=== PATIENT | male | born 1980 | race Hispanic/Latino ===

== ENCOUNTER 2022-09-03 11:23 | Emergency (ER) | payer SELFPAY ==
[2022-09-03] MEDS ORDERED: TETANUS & DIPHTHERIA TOX,ADULT 0.5 ML VIAL ONE (11:55)
[2022-09-03] MEDS ORDERED: LIDOCAINE 1% MPF 30 ML VIAL ONE (11:56)
--- NOTE | 2022-09-03 13:19 | ER ---
Nurse's Notes [facility] Name: Singh Cristina Age: 41 yrs Sex: Male : 1980 Arrival Date: 09/03/2022 Time: 11:24 Bed 11 Private MD: Diagnosis: Facial Laceration/ Laceration without foreign body of cheek and temporomandibular area Presentation: 09/03 11:41 Chief complaint: Patient states: metal [place] bar hit his face, bleeding controlled. [facility] Coronavirus screen: Vaccine status: Patient reports being unvaccinated. Client denies travel out of the [place] in the last 14 days. Ebola Screen: Patient negative for fever greater than or equal to 101.5 degrees Fahrenheit, and additional compatible Ebola Virus Disease symptoms Patient denies exposure to infectious person. Patient denies travel to an Ebola-affected area in the 21 days before illness onset. Initial Sepsis Screen: Does the patient meet any 2 criteria? No. Patient's initial sepsis screen is negative. Does the patient have a suspected source of infection? No. Patient's initial sepsis screen is negative. Risk Assessment: Do you want to hurt yourself or someone else? Patient reports no desire to harm self or others. 11:41 Method Of Arrival: Ambulatory [facility] 11:41 Acuity: SUZY 3 jh5 Triage Assessment: 11:42 General: Appears in no apparent distress. uncomfortable, well groomed, well developed, jh5 well nourished, Behavior is calm, cooperative, appropriate for age. Historical: - Allergies: 11:42 No Known Allergies; [facility] - PMHx: 11:42 None; [facility] - Immunization history:: Adult Immunizations up to date. - Social history:: Smoking status: Patient denies any tobacco usage or history of. Screenin:38 Abuse screen: Denies threats or abuse. Denies injuries from another. Nutritional ld1 screening: No deficits noted. Tuberculosis screening: No symptoms or risk factors identified. Fall Risk None identified. Assessment: 12:38 General: Appears in no apparent distress. comfortable, Behavior is calm, cooperative, ld1 appropriate for age. Pain: Denies pain. Neuro: Level of Consciousness is awake, alert, obeys commands, Oriented to person, place, time, situation, Appropriate for age. Cardiovascular: Capillary refill < 3 seconds Patient's skin is warm and dry. Respiratory: Airway is patent Respiratory effort is even, unlabored. GI: Abdomen is flat, non-distended. : No signs and/or symptoms were reported regarding the genitourinary system. EENT: No signs and/or symptoms were reported regarding the EENT system. Derm: No signs and/or symptoms reported regarding the dermatologic system. Musculoskeletal: No signs and/or symptoms reported regarding the musculoskeletal system. Vital Signs: 11:41 BP 131 / 88; Pulse 75; Resp 16; Temp 98.8; Pulse Ox 97% ; Weight 77.11 kg; Height 5 ft. 5 10 in. (177.80 cm); 11:41 Body Mass Index 24.39 (77.11 kg, 177.80 cm) 5 ED Course: 11:24 Patient arrived in ED. rg4 11:38 Samina Fajardo PA is PHCP. en 11:38 Humphrey Smith MD is Attending Physician. en 11:42 Triage completed. 5 11:42 Arm band placed on right wrist. 5 12:38 Jayshree Page, DIEGO is Primary Nurse. ld1 12:38 Patient has correct armband on for positive identification. Placed in gown. Bed in low ld1 position. Call light in reach. Side rails up X2. Pulse ox on. NIBP on. Door closed. Noise minimized. Warm blanket given. 12:38 Patient did not have IV access during this emergency room visit. ld1 13:30 No provider procedures requiring assistance completed. 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 Exp: ld1 03/13/2023. Lot #: [id number]. } Route: IM; Site: right deltoid; 11:58 Follow up: Response: (VIS) Vaccine information sheet provided today. Questions and/or ld1 concerns addressed. VIS edition date: May 30, 2021.; No adverse reaction 13:18 Follow up: Response: (VIS) Vaccine information sheet provided today. Questions and/or ld1 concerns addressed. VIS edition date: May 30, 2021.; No adverse reaction 13:17 Drug: Lidocaine (1 %) 10 ml {Note: Administered by VIJAY Lu..} Volume: 5 ld1 ml; Route: Infiltration; 13:18 Follow up: Response: No adverse reaction ld1 Medication: 13:30 Vaccine Information Statement (VIS) provided today. Questions and/or concerns ld1 addressed. VIS edition date: September 03, 2022. Outcome: 13:19 Discharge ordered by . en 13:30 Discharged to home ambulatory. ld1 13:30 Condition: stable 13:30 Discharge instructions given to patient, Instructed on discharge instructions, follow up and referral plans. Demonstrated understanding of instructions, follow-up care. 13:31 Patient left the ED. ld1 Signatures: Ebony Rizzo rg4 Jayshree Page RN RN ld1 Alessandra Snider RN RN jh5 Samina Fajardo PA PA en
--- NOTE | 2022-09-03 13:19 | EDPHYS ---
Physician Documentation [facility] Name: Singh Cristina Age: 41 yrs Sex: Male : 1980 Arrival Date: 09/03/2022 Time: 11:24 Bed 11 Private MD: ED Physician Humphrey Smith HPI: 09/03 11:51 This 41 yrs old Male presents to ER via Ambulatory with complaints of en Laceration To Face. 11:51 41-year-old male presents to ED with laceration to the right side of his cheek abutting en the nose prior to arrival. Patient reports that the wood floor she was working on gave way and when he fell the crowbar popped him in the face. He has no epistaxis. No cheek pain. No dental trauma. No difficulty opening or closing mouth. He did not lose consciousness and is not acting normal per friend. Unknown last tetanus.. Historical: - Allergies: 11:42 No Known Allergies; [facility] - PMHx: 11:42 None; [facility] - Immunization history:: Adult Immunizations up to date. - Social history:: Smoking status: Patient denies any tobacco usage or history of. ROS: 11:51 Constitutional: Negative for fever, chills, and weight loss. en 11:51 ENT: Positive for Laceration to right side of the nose with right-sided epistaxis currently controlled., Negative for Dental or nasal pain. No trauma to the teeth.. 11:51 Neck: Negative for pain with movement. 11:51 Skin: Positive for laceration(s), Laceration to the right cheek adjacent to the nose.. 11:51 All other systems are negative. 13:13 Skin: Positive for laceration(s). en Exam: 11:51 Constitutional: This is a well developed, well nourished patient who is awake, alert, en and in no acute distress. 11:51 Constitutional: The patient appears in no acute distress, alert, awake. 11:51 Head/face: 3.5 cm laceration to the right cheek adjacent to the nose with no extension into nasolabial fold. 11:51 Eyes: Pupils: equal, round, and reactive to light and accomodation, Extraocular movements: intact throughout, Conjunctiva: normal, no exudate, no injection. 11:51 ENT: TM's: are normal, no hemotympanum, No trismus or dental trauma. Right nostril with dried epistaxis no active bleeding. No tenderness to palpation swelling or deformity of the nose. No tenderness to the maxilla.. 11:51 Neck: External neck: is normal, no tenderness, ROM/movement: is normal, no range of motions limitations. 11:51 Cardiovascular: Rate: normal, Rhythm: regular, Heart sounds: normal, no murmur, no rub, no gallop. 11:51 Respiratory: the patient does not display signs of respiratory distress, Respirations: normal, Breath sounds: are clear throughout, no rales, rhonchi, no wheezing. 11:51 Skin: Facial laceration as described above. Vital Signs: 11:41 BP 131 / 88; Pulse 75; Resp 16; Temp 98.8; Pulse Ox 97% ; Weight 77.11 kg; Height 5 ft. jh5 10 in. (177.80 cm); 11:41 Body Mass Index 24.39 (77.11 kg, 177.80 cm) jh5 Laceration: 11:51 Wound Repair of 3.5cm ( 1.4in ) subcutaneous laceration to 3.5 cm lac to right cheek en adjacent to nose with with no extension into nasolabial fold. Distal neuro/vascular/tendon intact. Anesthesia: Wound infiltrated with 10 mls of 1% lidocaine. Wound prep: Simple cleansing with betadine, Wound explored, Copious irrigation. Subcutaneous tissue closed with 3 5-0 Vicryl using skin closed with 10 5-0 fast absorbing gut. Patient tolerated well. MDM: 11:49 Patient medically screened. en 11:51 Differential diagnosis: Right-sided facial laceration without concern for facial en fracture. No extension into the cartilage of the nasolabial fold. We will close primarily. Data reviewed: vital signs, nurses notes. ED course: . ED course: Plan to close laceration primarily with wound care and return precautions. 11:51 ED course: Pt tolerated procedure well. Discussed scar management. No extension to the en nasolabial fold. Discussed wound care and return precautions.. 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 Exp: ld1 03/13/2023. Lot #: [id number]. } Route: IM; Site: right deltoid; 11:58 Follow up: Response: (VIS) Vaccine information sheet provided today. Questions and/or ld1 concerns addressed. VIS edition date: May 30, 2021.; No adverse reaction 13:18 Follow up: Response: (VIS) Vaccine information sheet provided today. Questions and/or ld1 concerns addressed. VIS edition date: May 30, 2021.; No adverse reaction 13:17 Drug: Lidocaine (1 %) 10 ml {Note: Administered by PA. Tabitha.} Volume: 5 ld1 ml; Route: Infiltration; 13:18 Follow up: Response: No adverse reaction ld1 Disposition: 15:47 Co-signature as Attending Physician, Humphrey Smith MD. rn Disposition Summary: 09/03/22 13:19 Discharge Ordered Location: Home en Problem: new en Symptoms: have improved en Condition: Stable en Diagnosis - Facial Laceration/ Laceration without foreign body of cheek and temporomandibular en area Followup: en - With: Private Physician - When: As needed - Reason: Discharge Instructions: - Discharge Summary Sheet en - Facial Laceration, [id number] en Forms: - Medication Reconciliation Form en - Thank You Letter en - Antibiotic Education en - Prescription Opioid Use en Signatures: Humphrey Smith MD MD rn Dibbern, Lauren, RN RN ld1 Alessandra Snider RN RN jh5 Samina Fajardo PA PA en Corrections: (The following items were deleted from the chart) 13:15 11:51 Head/face: 3 cm laceration to the right cheek adjacent to the nose with small en component extending into the right nasolabial fold without injury to the cartilage. en 13:18 11:51 Wound Repair of 3cm ( 1.2in ) subcutaneous laceration to 3 cm lac to right cheek en adjacent to nose with small 1.5cm component extending into right nasolabial fold. No cartilage injury. Distal neuro/vascular/tendon intact. Anesthesia: Wound infiltrated with 10 mls of 1% lidocaine. Wound prep: Simple cleansing with betadine, Wound explored, Copious irrigation. Skin closed with 6-0 Prolene using simple sutures and sterile technique. Dressed with Bacitracin. Patient tolerated well. en
[2022-09-03 13:35] VITALS: BP 131/88; TEMP 98.8; O2SAT 97
== END 2022-09-03 13:31 | disposition home or self-care (01) ==
LOC: ER 11:23
PROC: 0JQ10ZZ Repair Face Subcutaneous Tissue and Fascia, Open Approach (ICD-10-PCS; principal; 2022-09-03)
DX: S01.411A Laceration without foreign body of right cheek and temporomandibular area, initial encounter (principal); W20.1XXA Struck by object due to collapse of building, initial encounter; Y93.89 Activity, other specified; Y92.9 Unspecified place or not applicable; Y99.9 Unspecified external cause status; Z23 Encounter for immunization
CPT/HCPCS: 90471; 90714; 99283